=== PATIENT | female | born 1955 | race Caucasian/White ===

== ENCOUNTER → 2020-08-30 12:01 | Outpatient (BNVA) | payer MEDICARE, OTHER, SELFPAY | PROVIDERS: PCP Obstetrics & Gynecology; Referring Provider Obstetrics & Gynecology; Visit Provider Specialist | DX: R20.0 Anesthesia of skin (principal); R20.2 Paresthesia of skin | CPT/HCPCS: 99203; 99204 ==

== ENCOUNTER 2020-08-30 14:27 | Outpatient (CLI) | payer MEDICARE, OTHER, SELFPAY ==
[2020-08-30 15:56] LABS: C Reactive Protein 0.3 mg/L (0.0-4.9); Thyroid Stimulating Hormone 1.94 uIU/mL (0.27-4.20); Vitamin B12 1445 pg/mL (232-1245)
[2020-08-30 16:15] LABS: Erythrocyte Sedimentation Rate 15 mm/hr (0-15)
[2020-08-31 01:23] LABS: Folate Level > 20.0 ng/mL (4.8-37.3)
[2020-09-04 06:48] LABS: Methylmalonic Acid 132 nmol/L (87-318)
== END 2020-08-30 14:28 | disposition home or self-care (01) ==
LOC: LAB 14:36
PROVIDERS: PCP Obstetrics & Gynecology; Visit Provider Specialist
DX: R20.0 Anesthesia of skin (principal); R20.2 Paresthesia of skin
CPT/HCPCS: 36415; 82607; 82746; 83921; 84260; 84443; 85651; 86140; 86431; 99203; 99204

== ENCOUNTER → 2025-01-04 10:58 | Outpatient (BNVA) | payer MEDICARE, OTHER, SELFPAY | PROVIDERS: PCP Obstetrics & Gynecology; Visit Provider Specialist | DX: G30.9 Alzheimer's disease, unspecified (principal); F02.80 Dementia in other diseases classified elsewhere, unspecified severity, without behavioral disturbance, psychotic disturbance, mood disturbance, and anxiety; F32.A Depression, unspecified | CPT/HCPCS: 82542; 82607; 83520; 99205 ==

== ENCOUNTER → 2025-04-08 14:24 | Outpatient (BNVA) | payer MEDICARE, OTHER, SELFPAY | PROVIDERS: PCP Obstetrics & Gynecology; Visit Provider Specialist | DX: G30.9 Alzheimer's disease, unspecified (principal); F02.80 Dementia in other diseases classified elsewhere, unspecified severity, without behavioral disturbance, psychotic disturbance, mood disturbance, and anxiety; F32.A Depression, unspecified | CPT/HCPCS: 99214 ==